=== PATIENT | female | born 1990 | race Caucasian/White ===

== ENCOUNTER 2018-07-12 00:05 | Day surgery (SDC) | payer BC ==
[2018-07-12 00:39] VITALS: BMI 28.3
[2018-07-12 01:03] LABS: Amnisure Test No Membranes Rupture (No Rupture)
[2018-07-12 01:04] LABS: Amnisure Internal Control QC ACCEPTABLE (ACCEPTABLE)
--- NOTE | 2018-07-12 02:07 | PRG ---
DATE OF SERVICE: 07/12/2018 PRIMARY OB: Dr. Alona Potts. CHIEF COMPLAINT: Leakage of fluid. HISTORY OF PRESENT ILLNESS: The patient is a 27-year-old G1, P0 female with an intrauterine at 39 weeks and 3 days, who is presenting to Labor and Delivery after experiencing some leakage of fluid around 10 o'clock this evening. The patient reports that she had little more wetness later on in the evening and came here for evaluation. The patient denies uterine contractions. She denies vaginal bleeding. She denies abdominal pain. She denies fever, fall, headache, chest pain, or shortness of breath. Denies nausea, vomiting, diarrhea, or constipation. Denies hip problems, knee problems, or muscle weakness. Denies any new rashes. Denies change in her discharge or bleeding. Denies urinary urgency. PAST MEDICAL HISTORY: Negative. PAST SURGICAL HISTORY: Negative. ALLERGIES: NO KNOWN DRUG ALLERGIES. MEDICATIONS: vitamins. SOCIAL HISTORY: Denies drug, alcohol, or tobacco use. OB LABS: The patient is GBS negative. HIV is nonreactive. REVIEW OF SYSTEMS: Per HPI. PHYSICAL EXAMINATION: VITAL SIGNS: Blood pressure 117/70, heart rate of 77, temperature 98.2, and respiratory rate 18. GENERAL: She appears to be in no acute distress. She is alert, oriented, cooperative, and pleasant to interact with. HEAD: Normocephalic and atraumatic. LUNGS: Clear to auscultation bilaterally. HEART: Has regular rate and rhythm. ABDOMEN: Soft and gravid. EXTREMITIES: Are nontender and nonedematous. GENITOURINARY: Vulva is without mass, lesions, or erythema. Vagina is moist. On Valsalva, there is no evidence of pulling and cervix is visibly closed. On bimanual exam, cervix is closed. heart tracing performed baseline is noted to be in the 130s with moderate long-term variability, positive 15 x 15 accelerations. No contractions visible on the monitor. AmniSure test is negative. ASSESSMENT AND PLAN: The patient is a 27-year-old, G1, P0 female with an intrauterine at 39 weeks and 3 days, presenting for leakage of fluid. There is no evidence on physical exam or on laboratory testing of rupture of membranes. The patient has been given reassurance. Fetus is reactive with a category one tracing. The patient has an appointment on Freddy to follow up with Dr. Potts, which we have encouraged that she keep. The patient has been given pre-term labor precautions, and she has been asked to return to Labor and Delivery should she experience evidence of labor, vaginal bleeding, persistent leakage of fluid, or other concerns. Job ID: [id number]
== END 2018-07-12 01:40 | disposition home health service (06) ==
LOC: L&D/OP 00:05
PROVIDERS: ATTEND Family Medicine
DX: O99.89 Other specified diseases and conditions complicating pregnancy, childbirth and the puerperium (principal); N89.8 Other specified noninflammatory disorders of vagina; Z3A.39 39 weeks gestation of pregnancy; Z79.899 Other long term (current) drug therapy
CPT/HCPCS: 84112; 99283

== ENCOUNTER 2018-07-22 21:42 | Inpatient (IN) | payer BC ==
[2018-07-22 22:34] VITALS: BMI 28.3
[2018-07-22] MEDS: Lactated Ringer's 1,000 ML IV SCH (23:01)
[2018-07-22] MEDS ORDERED: Promethazine HCl 25 MG/ML VIAL IM PRN (23:03)
[2018-07-22] MEDS ORDERED: Ondansetron PF 4 MG/2 ML Vial IVP PRN (23:03)
[2018-07-22] MEDS ORDERED: Misoprostol 200 MCG TAB PR PRN (23:03)
[2018-07-22] MEDS ORDERED: Acetaminophen 500 MG TAB PO PRN (23:03)
[2018-07-22] MEDS ORDERED: NS / Oxytocin 40 units/1000ml 1,000 ML IV PRN (23:03)
[2018-07-22] MEDS ORDERED: Meperidine HCl/PF 25 MG/ML VIAL IM/IV PRN (23:03)
[2018-07-22] MEDS ORDERED: Ibuprofen 800 MG TAB PO PRN (23:03)
[2018-07-22] MEDS ORDERED: Carboprost 250 MCG/ML AMP IM PRN (23:03)
[2018-07-22] MEDS ORDERED: HYDROcodone/Acetaminophen 5/325 mg Tablet PO PRN (23:03)
[2018-07-22] MEDS ORDERED: Butorphanol Tartrate 1 MG/ML VIAL SLOW IVP PRN (23:03)
[2018-07-22] MEDS ORDERED: Methylergonovine 0.2 MG/ML VIAL IM PRN (23:03)
[2018-07-22] MEDS ORDERED: Lidocaine 1% (PF) 30 ML VIAL SC PRN (23:03)
[2018-07-22 23:26] LABS: Hemoglobin 13.6 g/dL (12.0-16.0); Mean Corpuscular HGB CONC 34.1 g/dL (32.0-36.0); Mean Corpuscular Hemoglobin 32.7 pg (27.0-31.0); Mean Corpuscular Volume 95.7 fL (78.0-98.0); Mean Platelet Volume 8.4 fL (7.4-10.4); Platelet Count 154 thou/uL (130-400); RBC Distribution Width 12.3 % (11.5-14.5); Red Blood Cell (RBC) Count 4.16 mill/uL (4.20-5.40); White Blood Cell (WBC) Count 14.6 thou/uL (4.8-10.8)
[2018-07-22] MEDS ORDERED: Fentanyl 4 mcg/Bup 0.1% Cadd 100 ML ONE (23:39)
[2018-07-23 00:09] LABS: Syphilis Antibody Nonreactive (Nonreactive); Syphilis Antibody Index 0.04 S/CO (<1.00 Non-Reactive)
[2018-07-23] MEDS: Lactated Ringer's 1,000 ML IV SCH ×2 (00:18→07:29)
[2018-07-23 00:38] LABS: HBSAg Index 0.23 S/CO (0-0.99); Hep B Surf Ag Non-Reactive S/CO (NonReactive)
[2018-07-23] MEDS ORDERED: NS w/ Oxytocin 10 units 500 ML IVPB SCH (05:00)
[2018-07-23] MEDS ORDERED: Fentanyl 4 mcg/Bup 0.1% Cadd 100 ML ONE ×2 (07:36→07:37)
[2018-07-23] MEDS ORDERED: Lidocaine 1% (PF) 30 ML VIAL ONE (08:13)
[2018-07-23] MEDS ORDERED: Bisacodyl 10 MG SUPP PR PRN (09:40)
[2018-07-23] MEDS ORDERED: NS / Oxytocin 40 units/1000ml 1,000 ML IV SCH (09:40)
[2018-07-23] MEDS ORDERED: Benzocaine/Menthol 20-0.5% 60 ML CAN TOP PRN (09:40)
[2018-07-23] MEDS ORDERED: HYDROcodone/Acetaminophen 5/325 mg Tablet PO PRN (09:40)
[2018-07-23] MEDS ORDERED: Lanolin Ointment 7 GM TUBE TOP PRN (09:40)
[2018-07-23] MEDS ORDERED: Milk Of Magnesia 30 ML UDCUP PO PRN (09:40)
[2018-07-23] MEDS: Ibuprofen 800 MG TAB PO SCH (10:30)
[2018-07-23] MEDS ORDERED: Bupivacaine/Epinephrine 0.25% 30 ML VIAL ONE (11:11)
[2018-07-23] MEDS: Ferrous Sulfate 325 MG TAB PO SCH (18:38)
--- NOTE | 2018-07-23 19:04 | DN ---
DATE OF PROCEDURE: 07/23/2018 DATE OF DELIVERY: 07/23/2018. PREOPERATIVE DIAGNOSIS: Term intrauterine in labor. POSTOPERATIVE DIAGNOSIS: Term intrauterine in labor. PROCEDURE PERFORMED: Normal spontaneous vaginal delivery. ANESTHESIA: Epidural. ESTIMATED BLOOD LOSS: Please see the nurse's notes for quantitative blood loss. BRIEF DELIVERY SUMMARY: This is a 27-year-old G1, now P1, who presented in active labor. She progressed to complete and pushing. She delivered a live male head away. Mouth and nares were bulb suctioned at the perineum. There was no nuchal cord. Shoulders and body easily followed, and the was placed on mother's abdomen. The umbilical cord was doubly clamped and cut, and cord blood was sent for analysis. Placenta delivered spontaneously and intact with a three-vessel umbilical cord. There was a small first-degree midline perineal laceration which was repaired in standard running fashion under epidural anesthesia using 2-0 Vicryl suture with excellent hemostasis. Uterine fundus was firm following evacuation of the placenta and Pitocin was hanging in the IV. Mom and baby were left with the nurse in excellent condition attempting to breastfeed. Job ID: [id number]
[2018-07-23] MEDS: Docusate Calcium (SURFAK) 240 MG CAP PO SCH (22:15)
[2018-07-24] MEDS: Ibuprofen 800 MG TAB PO SCH ×6 (00:43→22:39)
[2018-07-24] MEDS: Ferrous Sulfate 325 MG TAB PO SCH ×2 (07:37→17:26)
[2018-07-24] MEDS: Docusate Calcium (SURFAK) 240 MG CAP PO SCH ×2 (08:17→22:39)
--- NOTE | 2018-07-24 11:36 | PDOC.PP ---
Post Progress Note Post Day #: 1 Subjective: Doign well PP./ well. NO complaints. PO intake tolerated: yes Flatus: yes Ambulation: yes Vital Signs (12 hours) Temp Pulse Resp BP Pulse Ox 07/24/18 08:52 98 F 83 18 115/58 L 97 07/24/18 05:30 98.7 F 91 18 108/59 L 07/24/18 02:00 97.7 F 84 18 105/55 L Weight Weight 155 lb - Physical Examination General: NAD Cardiovascular: no m/r/g, RRR Respiratory: clear to auscultation bilaterally, non-labored breathing Abdominal: + bowel sounds, lochia, no distention, appropriately TTP Result Diagrams: 07/22/18 23:10 Additional Labs: Post Labs Blood Type O POSITIVE 07/22/18 23:10 Hep Bs Antigen Non-Reactive S/CO (NonReactive) 07/22/18 23:10 (1) Vaginal delivery Code(s): O80 - ENCOUNTER FOR FULL-TERM UNCOMPLICATED DELIVERY Status: Acute - Assessment/Plan Routine PP care Contineu to work on BF D/C home tomorrow
[2018-07-25] MEDS: Ibuprofen 800 MG TAB PO SCH (06:31)
[2018-07-25 08:04] VITALS: BP 112/65; TEMP 97.9
[2018-07-25] MEDS: Ferrous Sulfate 325 MG TAB PO SCH (08:17)
[2018-07-25] MEDS: Docusate Calcium (SURFAK) 240 MG CAP PO SCH (08:17)
--- NOTE | 2018-07-25 09:10 | PDOC.PP ---
Post Progress Note Post Day #: 2 Subjective: Doing well. NO c/o. Bleeding OK. OK. PO intake tolerated: yes Flatus: yes Ambulation: yes Vital Signs (12 hours) Temp Pulse Resp BP Pulse Ox 07/25/18 08:00 97.9 F 76 20 112/65 100 Weight Weight 155 lb - Physical Examination General: NAD Cardiovascular: no m/r/g, RRR Respiratory: clear to auscultation bilaterally, non-labored breathing Abdominal: + bowel sounds, lochia, no distention, appropriately TTP Result Diagrams: 07/22/18 23:10 Additional Labs: Post Labs Blood Type O POSITIVE 07/22/18 23:10 Hep Bs Antigen Non-Reactive S/CO (NonReactive) 07/22/18 23:10 (1) Vaginal delivery Code(s): O80 - ENCOUNTER FOR FULL-TERM UNCOMPLICATED DELIVERY Status: Acute - Assessment/Plan Routine PP care D/C home F/U in 6 weeks.
== END 2018-07-25 12:29 | disposition home or self-care (01) | DRG 807 ==
LOC: L&D/OP 21:42 → L&D 07-23 02:24 → 3SW 07-23 11:35
PROVIDERS: ADMIT Family Medicine; ATTEND Family Medicine
PROC: 10E0XZZ Delivery of Products of Conception, External Approach (ICD-10-PCS; principal; 2018-07-23)
PROC: 0W8NXZZ Division of Female Perineum, External Approach (ICD-10-PCS; 2018-07-23)
PROC: 10907ZC Drainage of Amniotic Fluid, Therapeutic from Products of Conception, Via Natural or Artificial Opening (ICD-10-PCS; 2018-07-23)
DX: O70.0 First degree perineal laceration during delivery (principal); Z37.0 Single live birth; Z3A.41 41 weeks gestation of pregnancy
CPT/HCPCS: 36415; 51702; 85027; 86780; 86850; 86900; 86901; 87340; 99285; J2001

== ENCOUNTER 2020-03-26 05:56 | Day surgery (SDC) | payer BC ==
[2020-03-25 11:26] VITALS: BMI 21.0
[2020-03-26] MEDS ORDERED: Lidocaine 2% PF 5 ML VIAL ONE (06:32)
[2020-03-26] MEDS ORDERED: Bupivacaine/Epinephrine 0.25% 30 ML VIAL ONE (06:32)
[2020-03-26] MEDS ORDERED: Fentanyl 100 MCG/2 ML VIAL ONE ×2 (06:54→08:47)
[2020-03-26] MEDS ORDERED: Lidocaine 1% PF 5 ML VIAL ONE (12:31)
[2020-03-26] MEDS ORDERED: Ondansetron PF 4 MG/2 ML Vial ONE (12:31)
[2020-03-26] MEDS ORDERED: PROPOFOL 200 MG/20 ML VIAL ONE (12:31)
[2020-03-26] MEDS ORDERED: Dexamethasone 20 MG/5 ML VIAL ONE (12:31)
--- NOTE | 2020-03-27 13:49 | OP ---
DATE OF PROCEDURE: 03/26/2020 PREOPERATIVE DIAGNOSIS: Soft tissue mass, left lower extremity. POSTOPERATIVE DIAGNOSIS: Soft tissue mass, left lower extremity. 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 ANESTHESIA: General. ESTIMATED BLOOD LOSS: Minimal. COMPLICATIONS: None. SPECIMEN: Soft tissue mass marked with 2 short superior, 1 long lateral, and sent to Path for final diagnosis. TECHNIQUE: The patient was taken to the operating room and laid supine on the operating room table. After general anesthetic was obtained, the left lower extremity was prepped and draped in a circumferential fashion to the end of the extremity and then above the knee. The patient had a palpable soft tissue mass in the intramuscular location of the left lateral posterior calf. 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 MRI revealed no obvious intramuscular extension. Dissections taken down to the muscles that were split to reveal this soft tissue tumor. The tumor was removed with an en bloc part of the muscle. It was marked with 2 short superior, 1 long lateral, and sent to Path for final diagnosis. The wound was irrigated. Local anesthetic was applied. The wound was closed in 3-0 Vicryl, 4-0 Monocryl, and Dermabond. The patient was sent to Recovery in stable condition. All instrument counts, needle counts, and lap counts were correct. Job ID: [id number]
== END 2020-03-26 10:10 | disposition home or self-care (01) ==
LOC: SDC 05:56
PROVIDERS: ATTEND Surgery
PROC: 0KBT0ZZ Excision of Left Lower Leg Muscle, Open Approach (ICD-10-PCS; principal; 2020-03-26)
DX: D36.13 Benign neoplasm of peripheral nerves and autonomic nervous system of lower limb, including hip (principal)
CPT/HCPCS: 88305; 88307; J0690; J1100; J2001; J2405; J2704; J3010